=== PATIENT | female | born 1960 | race Caucasian/White ===

== ENCOUNTER 2016-06-15 23:03 | Emergency (ER) | payer MEDICARE, MEDICAID ==
[~2016-06-15] VITALS: Ht 165.1 cm; Wt 119.1 kg
[~2016-06-15 23:03] MED LIST: ABILIFY 10MG TA10 MG PO; AMBIEN 10MG10 MG PO; AMBIEN5 MG PO; ASPIR-LOW81 MG PO; ASPIRIN 81M81 MG/TA2 PO; ATHLETE'S FOOT1% TP; ATIVAN 1MG T1 MG/TAB PO; ATIVAN1 MG PO; BENADRYL; BENADRYL25 M1 PO; BENADRYL25 M2 PO; BENADRYL25 MG PO; BENADRYL50 MG PO; BENTYL 10MG10 MG/CAP PO; BENTYL10 MG/5 ML PO; BUDEPRION XL150 MG PO; CELEXA 20MG20 MG/TAB PO; COLACE 100100 MG/CAP PO; CULTURELLE CAP1 EAC1 PO; FIORICET 325 MG1 TA1 PO; FLEXERIL 1010 MG/TAB PO; FLEXERIL10 MG PO; FLONASE NASAL S16 GM NS; FLONASE0.05 MG/AC NS; KLOR-CON M2020 MEQ PO; LEVAQUIN 5500 MG/TA1 PO; LEVOTHYROXIN0.075 MG PO; LEVOXYL0.05 MG PO; LEXAPRO 10MG10 MG PO; LEXAPRO20 MG PO; LISINOPRIL AND1 TAB PO; LISINOPRIL-HYDR1 TAB PO; LISINOPRIL/HCTZ1 TAB PO; LORAZEPAM1 MG PO; NEURONTIN300 MG PO; NITROSTAT0.4 MG/TAB SL; NORCO 325 MG-51 TAB PO; OMEPRAZOLE20 MG PO; PANTOPRAZOLE40 MG PO; PERCOCET 325 MG1 TA2 PO; PERCOCET 325 MG1 TAB PO; PREDNISONE 2.52.5 MG PO; PREDNISONE 5MG5 MG PO; PREDNISONE1 MG PO; PREDNISONE20 MG PO; PRILOSEC 20MG20 MG PO; PRINZIDE 12.5 M1 TAB PO; PROTONIX 40MG T40 MG PO; SAVELLA25 MG PO; SEROQUEL XR300 MG PO; SPORANOX100 MG PO; STOOL SOFTENER100 M1 PO; STOOL SOFTENER100 M2 PO; SYNTHROID0.075 MG/T PO; SYNTHROID0.088 MG/T PO; TOPROL XL 25MG25 MG PO; TRAZODONE150 MG PO; VALIUM5 MG PO; VITRON C PO; WELLBUTRIN XL150 MG PO; ZOFRAN 4MG T4 MG/TAB PO; ZOFRAN4 M1 PO; ZOLPIDEM10 MG PO
[2016-06-15 23:06] VITALS: BP 117/82; PULSE 105; TEMP 98.1
== END 2016-06-16 00:21 | disposition home or self-care (01) ==
LOC: COL.ER 23:03
DX: S80.12XA Contusion of left lower leg, initial encounter (principal); V48.4XXA Person boarding or alighting a car injured in noncollision transport accident, initial encounter

== ENCOUNTER → 2018-04-04 | Outpatient (CLI) | payer MEDICARE, MEDICAID | LOC: MC.RAD 09:37 | DX: Z12.31 Encounter for screening mammogram for malignant neoplasm of breast (principal) ==

== ENCOUNTER 2018-09-15 14:00 | Emergency (ER) | payer MEDICARE, MEDICAID ==
[~2018-09-15] VITALS: Ht 162.6 cm; Wt 111.4 kg
[2018-09-15 14:08] VITALS: TEMP 97.9
[2018-09-15 15:06] LABS: BASO # 0.1 (0.0-0.2); BASO % 0.7 % (0.0-2.0); EOS # 0.2 (0.0-0.7); EOS % 1.9 % (0-4.0); GRAN # 4.7 (1.4-6.5); HEMATOCRIT 47.8 % (37.0-47.0); HEMOGLOBIN 15.4 g/dl (12.5-16.0); LYMPH # 3.4 (1.2-3.4); LYMPH % 37.3 % (20.0-51.0); MEAN CELL VOLUME 85 fl (80.0-100.0); MEAN CORPUSCULAR HEMOGLOBIN 28 pg (27.0-31.0); MEAN CORPUSCULAR HGB CONC 32 g/dl (33.0-37.0); MONO # 0.7 (0.1-0.6); MONO % 7.5 % (1.7-9.3); PLATELET COUNT 212 K/mm3 (130-400); REDCELL DISTRIBUTION WIDTH-CV 16.1 % (11.5-14.5)
[2018-09-15 15:17] LABS: ALANINE AMINOTRANSFERASE 17 U/L (9-52); ALBUMIN 3.8 gm/dL (3.5-5.0); ALKALINE PHOSPHATASE 75 U/L (50-136); ANION GAP 8 mmol/L (7-16); AST,SGOT 19 U/L (15-37); BILIRUBIN,TOTAL 0.3 mg/dL (0.0-1.0); BLOOD UREA NITROGEN 19 mg/dL (7-17); C-REACTIVE PROTEIN 0.7 mg/dL (0.0-0.9); CALCIUM 8.4 mg/dL (8.4-10.2); CARBON DIOXIDE 29 mmol/L (22-30); CHLORIDE 103 mmol/L (98-107); CREATININE, serum 0.77 (0.52-1.25); GLUCOSE 91 mg/dL (74-106); POTASSIUM 4.1 mmol/L (3.4-5.0); SODIUM 139 mmol/L (137-145); TOTAL PROTEIN 6.7 gm/dL (6.4-8.2)
[2018-09-15 15:26] LABS: TROPONIN-I < 0.012 ng/mL (0.000-0.035)
[2018-09-15] MEDS ORDERED: LEVAQUIN 5500 MG/TA1 PO (16:32)
[2018-09-15 16:52] VITALS: BP 125/65; PULSE 63
== END 2018-09-15 16:58 | disposition home or self-care (01) ==
LOC: COL.ER 14:00
PROVIDERS: Emergency Medicine
DX: J32.9 Chronic sinusitis, unspecified (principal); R42 Dizziness and giddiness; I10 Essential (primary) hypertension
CPT/HCPCS: J2060; J2405; J7030

== ENCOUNTER 2019-01-12 08:49 | Emergency (ER) | payer MEDICARE, MEDICAID ==
[~2019-01-12] VITALS: Ht 152.4 cm; Wt 118.2 kg
[2019-01-12 10:18] LABS: ALBUMIN 3.6 gm/dL (3.5-5.0); BILIRUBIN,TOTAL 0.3 mg/dL (0.0-1.0); C-REACTIVE PROTEIN 0.8 mg/dL (0.0-0.9); CALCIUM 8.6 mg/dL (8.4-10.2); CREATININE, serum 0.59 (0.52-1.25); POTASSIUM 4.1 mmol/L (3.4-5.0); TOTAL PROTEIN 6.3 gm/dL (6.4-8.2)
[2019-01-12] MEDS ORDERED: PEPCID 20MG TAB20 MG PO (10:39)
[2019-01-12] MEDS ORDERED: ASPIRIN 81M81 MG/TA2 PO (10:48)
[2019-01-12] MEDS ORDERED: STOOL SOFTENER100 M2 PO (10:48)
[2019-01-12 11:05] LABS: BASO # 0.1 (0.0-0.2); BASO % 0.8 % (0.0-2.0); EOS # 0.2 (0.0-0.7); EOS % 2.2 % (0-4.0); GRAN # 4.5 (1.4-6.5); GRAN % 57.7 % (42.2-75.2); HEMATOCRIT 39.3 % (37.0-47.0); HEMOGLOBIN 12.7 g/dl (12.5-16.0); LYMPH # 2.2 (1.2-3.4); LYMPH % 27.9 % (20.0-51.0); MEAN CELL VOLUME 88 fl (80.0-100.0); MEAN CORPUSCULAR HEMOGLOBIN 29 pg (27.0-31.0); MEAN CORPUSCULAR HGB CONC 32 g/dl (33.0-37.0); MEAN PLATELET VOLUME 10.7 fl (7.4-10.4); MONO # 0.8 (0.1-0.6); MONO % 10.5 % (1.7-9.3); PLATELET COUNT 221 K/mm3 (130-400); RED BLOOD COUNT 4.45 M/mm3 (4.10-5.30); REDCELL DISTRIBUTION WIDTH-CV 15.1 % (11.5-14.5)
[2019-01-12 11:40] LABS: COLLECTION METHOD CLEAN CATCH
[2019-01-12 11:46] LABS: PH 8 (5-8); SQUAMOUS EPITHELIAL 0-2 /hpf; URINE APPEARANCE Clear; URINE BACTERIA None Seen /hpf; URINE BILIRUBIN Negative (NEGATIVE); URINE BLOOD Negative (NEGATIVE); URINE COLOR Straw; URINE GLUCOSE Negative (NEGATIVE); URINE KETONE Negative (NEGATIVE); URINE LEUKOCYTE ESTERASE Negative (NEGATIVE); URINE NITRATE Negative (NEGATIVE); URINE PROTEIN(semi-quant) Negative (NEGATIVE); URINE RBC 0-2 /hpf; URINE UROBILINOGEN Negative (NEGATIVE)
[2019-01-12 14:50] VITALS: BP 132/68; PULSE 68; TEMP 98.5
== END 2019-01-12 14:50 | disposition home or self-care (01) ==
LOC: COL.ER 08:49
PROVIDERS: Family Medicine
DX: E86.0 Dehydration (principal); M54.9 Dorsalgia, unspecified; K21.9 Gastro-esophageal reflux disease without esophagitis; B34.9 Viral infection, unspecified; I10 Essential (primary) hypertension; E03.9 Hypothyroidism, unspecified; Z79.51 Long term (current) use of inhaled steroids; Z79.82 Long term (current) use of aspirin
CPT/HCPCS: J2405; J7030

== ENCOUNTER 2019-07-07 13:44 | Emergency (ER) | payer MEDICARE, MEDICAID ==
[~2019-07-07] VITALS: Ht 162.6 cm; Wt 134.1 kg
[~2019-07-07 13:44] MED LIST changes: +PEPCID 20MG TAB20 MG PO
[2019-07-07 13:49] VITALS: TEMP 98.5
[2019-07-07] MEDS ORDERED: PREDNISONE20 MG PO (14:18)
[2019-07-07] MEDS ORDERED: DOXYCYCLINE 10100 MG PO (14:18)
[2019-07-07 14:30] LABS: BASO % 0.5 % (0.0-2.0); EOS # 0.1 (0.0-0.7); EOS % 1.6 % (0-4.0); GRAN # 2.3 (1.4-6.5); GRAN % 41.1 % (42.2-75.2); HEMATOCRIT 43.4 % (37.0-47.0); HEMOGLOBIN 13.9 g/dl (12.5-16.0); LYMPH # 2.8 (1.2-3.4); LYMPH % 50.2 % (20.0-51.0); MEAN CELL VOLUME 88 fl (80.0-100.0); MEAN CORPUSCULAR HEMOGLOBIN 28 pg (27.0-31.0); MEAN CORPUSCULAR HGB CONC 32 g/dl (33.0-37.0); MEAN PLATELET VOLUME 10.6 fl (7.4-10.4); MONO # 0.4 (0.1-0.6); MONO % 6.2 % (1.7-9.3); PLATELET COUNT 124 K/mm3 (130-400); RED BLOOD COUNT 4.93 M/mm3 (4.10-5.30)
[2019-07-07 14:32] LABS: ALBUMIN 3.7 gm/dL (3.5-5.0); BILIRUBIN,TOTAL 0.5 mg/dL (0.0-1.0); CREATININE, serum 0.67 (0.52-1.25); POTASSIUM 4.7 mmol/L (3.4-5.0); TOTAL PROTEIN 6.5 gm/dL (6.4-8.2)
[2019-07-07 17:07] VITALS: BP 128/82; PULSE 95
[2019-07-08] MEDS ORDERED: TAMIFLU 75MG75 MG PO (22:45)
== END 2019-07-07 17:09 | disposition home or self-care (01) ==
LOC: COL.ER 13:44
PROVIDERS: Emergency Medicine
DX: J20.9 Acute bronchitis, unspecified (principal); J18.9 Pneumonia, unspecified organism; Z79.82 Long term (current) use of aspirin; Z79.51 Long term (current) use of inhaled steroids
CPT/HCPCS: J1720; J7030

== ENCOUNTER 2019-07-08 19:32 | Emergency (ER) | payer MEDICARE, MEDICAID ==
[~2019-07-08] VITALS: Ht 165.1 cm; Wt 134.1 kg
[~2019-07-08 19:32] MED LIST changes: +DOXYCYCLINE 10100 MG PO
[2019-07-08] MEDS ORDERED: TAMIFLU 75MG75 MG PO (22:45)
[2019-07-08 23:04] VITALS: BP 135/90; PULSE 84; TEMP 98.3
== END 2019-07-08 23:08 | disposition home or self-care (01) ==
LOC: COL.ER 19:32
DX: J10.1 Influenza due to other identified influenza virus with other respiratory manifestations (principal); J20.9 Acute bronchitis, unspecified; M79.7 Fibromyalgia; Z79.82 Long term (current) use of aspirin

== ENCOUNTER 2019-12-06 20:31 | Emergency (ER) | payer MEDICARE, MEDICAID ==
[~2019-12-06] VITALS: Ht 162.6 cm; Wt 136.4 kg
[~2019-12-06 20:31] MED LIST changes: +TAMIFLU 75MG75 MG PO
[2019-12-06 21:41] VITALS: BP 143/80; PULSE 74; TEMP 98.9
== END 2019-12-06 21:43 | disposition home or self-care (01) ==
LOC: COL.ER 20:31
DX: H60.91 Unspecified otitis externa, right ear (principal); I10 Essential (primary) hypertension; F32.9 Major depressive disorder, single episode, unspecified; Z79.52 Long term (current) use of systemic steroids; Z79.51 Long term (current) use of inhaled steroids; Z79.82 Long term (current) use of aspirin

== ENCOUNTER 2020-01-01 09:09 | Day surgery (SDC) | payer MEDICARE, MEDICAID ==
[~2020-01-01] VITALS: Ht 162.7 cm; Wt 134.2 kg
[2020-01-01] VITALS (11 sets, daily range): BP systolic 102–135; BP diastolic 69–98; PULSE 73–701; TEMP 98.9
[~2020-01-01 09:09] MED LIST changes: +BONINE25 MG PO
[2020-01-01] MEDS ORDERED: PREDNISONE 5MG5 MG PO (09:37)
[2020-01-01] MEDS ORDERED: MAGNESIUM250 M1 PO (09:40)
[2020-01-01] MEDS ORDERED: CENTRUM SILVER1 TAB PO (09:42)
[2020-01-01] MEDS ORDERED: NITRO-DUR0.2 MG/PAT TD (09:43)
[2020-01-01] MEDS ORDERED: NITROSTAT0.4 MG/TAB SL (09:43)
[2020-01-01 10:39] LABS: HEMOGLOBIN 13.4 g/dl (12.5-16.0); MEAN CELL VOLUME 88 fl (80.0-100.0); MEAN CORPUSCULAR HEMOGLOBIN 29 pg (27.0-31.0); MEAN CORPUSCULAR HGB CONC 33 g/dl (33.0-37.0); MEAN PLATELET VOLUME 10.1 fl (7.4-10.4); PLATELET COUNT 213 K/mm3 (130-400); RED BLOOD COUNT 4.68 M/mm3 (4.10-5.30); REDCELL DISTRIBUTION WIDTH-CV 15.5 % (11.5-14.5)
[2020-01-01 10:43] LABS: CALCIUM 8.4 mg/dL (8.4-10.2); CREATININE, serum 0.7 (0.52-1.25); POTASSIUM 3.7 mmol/L (3.4-5.0)
[2020-01-01 10:46] LABS: PROTHROMBIN TIME 11.7 SECONDS (9.7-12.8)
[2020-01-01 10:48] LABS: PARTIAL THROMBOPLASTIN TIME 32.1 SECONDS (26.0-37.0)
--- NOTE | 2020-01-01 11:36 | NUR ---
SEE MERGE DOCUMENTATION FOR MEDICATION ADMINISTRATION TIMES AND INTRA/POST PROCEDURE SEDATION ASSESSMENTS.
--- NOTE | 2020-01-01 13:00 | NUR ---
to eu 10 via bed, pt has radial band on right wrist with 12cc air, site within normal limits, no signs of bleeding. groin site has 2x2 with tegraderm that is clean and dry, area soft. call light in place, takes water. no c/o, reviewed bedrest and activity with pt.
--- NOTE | 2020-01-01 13:30 | NUR ---
pt remains the same, site to groin clean and dry, site to radial clean and dry, takes juice, meal ordered
--- NOTE | 2020-01-01 14:15 | NUR ---
at site check, 2x2 dressing saturated with blood, manual pressure applied, area is soft and ooze is at venous site, liaison inspection laboratory assistant called, ordere for safegard applied to site after 10 min of pressure, cont with small ooze, 40cc air applied area remains soft and oozing has stopped with con't to monitor
--- NOTE | 2020-01-01 14:45 | NUR ---
safeguard site remains the same, pt has no c/o. rests in bed, radial site is clean and dry with no oozing. at 1500 released 2cc from radial site
--- NOTE | 2020-01-01 15:45 | NUR ---
radial band released after 4cc, site with bandaid on with wrap, has slight bruising to wrist, no swelling.
--- NOTE | 2020-01-01 17:00 | NUR ---
head of bed raised to 45 degress, safeguard removed, no active bleeding, no swelling or oozing noted from site, new gauze and tegrederm placed, does have redness from "earlier" rash, mild bruise. pt walked in [place] and up to b/r and no changes from groin site. iv d'cd intact. reviewed discharge inst. with pt on care of radial and groin sites, next appt, and to d'c nitro patch with verbal understanding. pt is up in room dressed at 1800 waits for ride
--- NOTE | 2020-01-01 18:42 | NUR ---
patient waited for ride in chair, then discharged via w/c to car
== END 2020-01-01 18:43 | disposition home or self-care (01) ==
LOC: COL.CAR 09:09
PROVIDERS: Internal Medicine Cardiovascular Disease
DX: I48.0 Paroxysmal atrial fibrillation (principal); R06.00 Dyspnea, unspecified; I11.9 Hypertensive heart disease without heart failure; I25.10 Atherosclerotic heart disease of native coronary artery without angina pectoris; K21.9 Gastro-esophageal reflux disease without esophagitis; E03.9 Hypothyroidism, unspecified; G89.29 Other chronic pain; M79.7 Fibromyalgia; F41.9 Anxiety disorder, unspecified; F31.9 Bipolar disorder, unspecified; G47.30 Sleep apnea, unspecified; J98.4 Other disorders of lung; M19.90 Unspecified osteoarthritis, unspecified site; Z88.5 Allergy status to narcotic agent; Z82.49 Family history of ischemic heart disease and other diseases of the circulatory system; Z87.891 Personal history of nicotine dependence; Z88.0 Allergy status to penicillin; Z88.2 Allergy status to sulfonamides; Z88.7 Allergy status to serum and vaccine; Z88.1 Allergy status to other antibiotic agents; Z91.041 Radiographic dye allergy status; Z91.040 Latex allergy status; Z79.899 Other long term (current) drug therapy; Z79.82 Long term (current) use of aspirin; Z98.51 Tubal ligation status
CPT/HCPCS: C1760; C1769; C1887; C1894; J1200; J1644; J2250; J2930; J3010; Q9967

== ENCOUNTER 2020-03-14 16:23 | Emergency (ER) | payer MEDICARE, MEDICAID ==
[~2020-03-14] VITALS: Ht 162.6 cm; Wt 141.8 kg
[~2020-03-14 16:23] MED LIST changes: +CENTRUM SILVER1 TAB PO; +MAGNESIUM250 M1 PO; +NITRO-DUR0.2 MG/PAT TD
[2020-03-14] MEDS ORDERED: DECADRON0.5 MG PO (18:09)
[2020-03-14] MEDS ORDERED: FAMVIR 500500 MG/TAB PO (18:14)
[2020-03-14] MEDS ORDERED: REQUIP 0.5MG0.5 MG PO (18:15)
[2020-03-14 19:30] VITALS: BP 122/79; PULSE 81
== END 2020-03-14 19:30 | disposition home or self-care (01) ==
LOC: COL.ER 16:23
DX: S82.64XA Nondisplaced fracture of lateral malleolus of right fibula, initial encounter for closed fracture (principal); I10 Essential (primary) hypertension; E07.9 Disorder of thyroid, unspecified; M79.7 Fibromyalgia; Z79.82 Long term (current) use of aspirin; Z79.51 Long term (current) use of inhaled steroids; Z98.890 Other specified postprocedural states; Z79.890 Hormone replacement therapy; W01.0XXA Fall on same level from slipping, tripping and stumbling without subsequent striking against object, initial encounter; Y92.009 Unspecified place in unspecified non-institutional (private) residence as the place of occurrence of the external cause
CPT/HCPCS: Q4045

== ENCOUNTER → 2020-04-16 | Outpatient (CLI) | payer MEDICARE, MEDICAID ==
[~2020-04-16] MED LIST changes: +DECADRON0.5 MG PO; +FAMVIR 500500 MG/TAB PO; +REQUIP 0.5MG0.5 MG PO
== END ==
LOC: COL.PUL 04-06 10:00
DX: R06.02 Shortness of breath (principal); F17.210 Nicotine dependence, cigarettes, uncomplicated
CPT/HCPCS: J7674

== ENCOUNTER 2020-09-30 20:34 | Emergency (ER) | payer MEDICARE, MEDICAID ==
[~2020-09-30] VITALS: Ht 162.6 cm; Wt 156.4 kg
[~2020-09-30 20:34] MED LIST changes: +RT ADVAIR HFA 1112 G IH
[2020-09-30 22:30] VITALS: BP 140/97; PULSE 88; TEMP 98
== END 2020-09-30 22:30 | disposition home or self-care (01) ==
LOC: COL.ER 20:34
DX: S93.402A Sprain of unspecified ligament of left ankle, initial encounter (principal); S43.401A Unspecified sprain of right shoulder joint, initial encounter; I10 Essential (primary) hypertension; E11.9 Type 2 diabetes mellitus without complications; F32.9 Major depressive disorder, single episode, unspecified; J43.9 Emphysema, unspecified; Z88.1 Allergy status to other antibiotic agents; Z88.6 Allergy status to analgesic agent; Z88.0 Allergy status to penicillin; Z88.2 Allergy status to sulfonamides; Z88.8 Allergy status to other drugs, medicaments and biological substances; Z87.891 Personal history of nicotine dependence; Z79.82 Long term (current) use of aspirin; W18.09XA Striking against other object with subsequent fall, initial encounter

== ENCOUNTER 2020-10-09 08:50 | Emergency (ER) | payer MEDICARE, MEDICAID ==
[~2020-10-09] VITALS: Ht 162.6 cm; Wt 156.4 kg
[2020-10-09 08:54] VITALS: TEMP 98.6
[2020-10-09 09:36] LABS: BASO % 0.6 % (0.0-2.0); EOS # 0.2 (0.0-0.7); EOS % 3.2 % (0-4.0); GRAN # 2.9 (1.4-6.5); GRAN % 45.8 % (42.2-75.2); HEMOGLOBIN 12.9 g/dl (12.5-16.0); LYMPH # 2.6 (1.2-3.4); LYMPH % 41.8 % (20.0-51.0); MEAN CELL VOLUME 88 fl (80.0-100.0); MEAN CORPUSCULAR HEMOGLOBIN 28 pg (27.0-31.0); MEAN CORPUSCULAR HGB CONC 32 g/dl (33.0-37.0); MEAN PLATELET VOLUME 9.7 fl (7.4-10.4); MONO # 0.5 (0.1-0.6); MONO % 8.3 % (1.7-9.3); PLATELET COUNT 208 K/mm3 (130-400); RED BLOOD COUNT 4.64 M/mm3 (4.10-5.30); REDCELL DISTRIBUTION WIDTH-CV 16.1 % (11.5-14.5)
[2020-10-09 09:49] LABS: ALBUMIN 3.3 gm/dL (3.5-5.0); BILIRUBIN,TOTAL 0.3 mg/dL (0.0-1.0); CALCIUM 7.9 mg/dL (8.4-10.2); CREATININE, serum 0.76 (0.52-1.25); POTASSIUM 4.1 mmol/L (3.4-5.0); TOTAL PROTEIN 6.3 gm/dL (6.4-8.2)
[2020-10-09 10:15] LABS: COLLECTION METHOD CLEAN CATCH
[2020-10-09 10:19] LABS: THYROID STIMULATING HORMONE 7.4 uIU/mL (0.465-4.680)
[2020-10-09 10:21] LABS: MUCOUS Present /lpf; PH 6 (5-8); URINE APPEARANCE Hazy; URINE BACTERIA None Seen /hpf; URINE BILIRUBIN Negative (NEGATIVE); URINE BLOOD Negative (NEGATIVE); URINE COLOR Yellow; URINE GLUCOSE Negative (NEGATIVE); URINE KETONE Negative (NEGATIVE); URINE LEUKOCYTE ESTERASE Negative (NEGATIVE); URINE NITRATE Negative (NEGATIVE); URINE PROTEIN(semi-quant) Negative (NEGATIVE); URINE RBC 0-2 /hpf; URINE UROBILINOGEN Negative (NEGATIVE)
[2020-10-09 10:50] VITALS: BP 99/51; PULSE 64
== END 2020-10-09 10:50 | disposition home or self-care (01) ==
LOC: COL.ER 08:50
PROVIDERS: Family Medicine
DX: M25.511 Pain in right shoulder (principal); E03.9 Hypothyroidism, unspecified; I10 Essential (primary) hypertension; F41.9 Anxiety disorder, unspecified; M79.7 Fibromyalgia; Z88.1 Allergy status to other antibiotic agents; Z88.5 Allergy status to narcotic agent; Z88.0 Allergy status to penicillin; Z88.2 Allergy status to sulfonamides; Z88.7 Allergy status to serum and vaccine; Z88.6 Allergy status to analgesic agent; Z88.8 Allergy status to other drugs, medicaments and biological substances; Z91.040 Latex allergy status; Z91.041 Radiographic dye allergy status; Z87.891 Personal history of nicotine dependence; Z79.890 Hormone replacement therapy; Z79.51 Long term (current) use of inhaled steroids; Z79.899 Other long term (current) drug therapy; Z79.82 Long term (current) use of aspirin
CPT/HCPCS: J1200; J3010; J7120

== ENCOUNTER 2021-02-14 13:56 | Emergency (ER) | payer MEDICARE, MEDICAID ==
[~2021-02-14] VITALS: Ht 162.6 cm; Wt 195.5 kg
[2021-02-14 14:14] VITALS: TEMP 101.3
[2021-02-14 16:13] VITALS: BP 101/42; PULSE 82
[2021-02-14] MEDS ORDERED: DECADRON PO (18:29)
== END 2021-02-14 16:13 | disposition home or self-care (01) ==
LOC: COL.ER 13:56
DX: U07.1 COVID-19 (principal); J44.9 Chronic obstructive pulmonary disease, unspecified; I10 Essential (primary) hypertension; E03.9 Hypothyroidism, unspecified; Z88.1 Allergy status to other antibiotic agents; Z88.0 Allergy status to penicillin; Z79.890 Hormone replacement therapy; Z79.899 Other long term (current) drug therapy
CPT/HCPCS: Q0244

== ENCOUNTER → 2021-04-27 | Outpatient (CLI) | payer MEDICARE, MEDICAID ==
[~2021-04-27] MED LIST changes: +DECADRON PO
== END ==
LOC: MC.RAD 13:42
DX: N63.10 Unspecified lump in the right breast, unspecified quadrant (principal)

== ENCOUNTER 2021-06-03 17:07 | Emergency (ER) | payer MEDICARE, MEDICAID ==
[~2021-06-03] VITALS: Ht 154.9 cm; Wt 150.0 kg
[~2021-06-03 17:07] MED LIST changes: -REQUIP 0.5MG0.5 MG PO; +REQUIP 1MG T1 MG/TAB PO
[2021-06-03 18:25] LABS: BASO # 0.1 K/mm3 (0.0-0.2); BASO % 0.6 % (0.0-2.0); EOS # 0.2 K/mm3 (0.0-0.7); EOS % 2.2 % (0.0-4.0); GRAN # 3.7 K/mm3 (1.4-6.5); GRAN % 42.7 % (42.2-75.2); HEMATOCRIT 44.3 % (37.0-47.0); HEMOGLOBIN 14.6 g/dl (12.5-16.0); LYMPH # 3.9 K/mm3 (1.2-3.4); LYMPH % 45.3 % (20.0-51.0); MEAN CELL VOLUME 89 fl (80.0-100.0); MEAN CORPUSCULAR HEMOGLOBIN 29 pg (27-31); MEAN CORPUSCULAR HGB CONC 33 g/dl (33.0-37.0); MEAN PLATELET VOLUME 10.8 fl (7.4-10.4); MONO # 0.8 K/mm3 (0.1-0.6); MONO % 8.9 % (1.7-9.3); PLATELET COUNT 207 K/mm3 (130-400); RED BLOOD COUNT 4.99 M/mm3 (4.10-5.30); REDCELL DISTRIBUTION WIDTH-CV 14.7 % (11.5-14.5)
[2021-06-03 18:30] LABS: COLLECTION METHOD CLEAN CATCH
[2021-06-03 18:38] LABS: MUCOUS Present (NOT PRESENT); PH 6 (5-8); SQUAMOUS EPITHELIAL 0-2 /hpf (0-10); URINE APPEARANCE Clear (CLEAR/HAZY); URINE BACTERIA Rare /hpf (NONE SEEN); URINE BILIRUBIN Negative (NEGATIVE); URINE BLOOD Negative (NEGATIVE); URINE COLOR Yellow (YELLOW); URINE GLUCOSE Negative (NEGATIVE); URINE KETONE Negative (NEGATIVE); URINE LEUKOCYTE ESTERASE 1+ (NEGATIVE); URINE NITRATE Negative (NEGATIVE); URINE PROTEIN(semi-quant) Negative (NEGATIVE); URINE RBC 0-2 /hpf (0-2); URINE UROBILINOGEN Negative (NEGATIVE)
[2021-06-03 18:41] LABS: ACETAMINOPHEN < 1.0 ug/mL (10-30); ALANINE AMINOTRANSFERASE 40 U/L (0-55); ALBUMIN 3.3 gm/dL (3.5-5.0); ALCOHOL(ethanol),MEDICAL < 10 mg/dL (0-10); ALKALINE PHOSPHATASE 81 U/L (40-150); ANION GAP 13 mmol/L (7-16); AST,SGOT 52 U/L (5-34); BILIRUBIN,TOTAL 0.5 mg/dL (0.2-1.2); BLOOD UREA NITROGEN 14 mg/dL (10-20); CALCIUM 8.9 mg/dL (8.4-10.2); CARBON DIOXIDE 23 mmol/L (22-29); CHLORIDE 105 mmol/L (98-107); CREATININE, serum 1.13 mg/dL (0.57-1.11); GLUCOSE 118 mg/dL (70-99); POTASSIUM 4.3 mmol/L (3.5-4.5); SALICYLATE < 5.0 mg/dL (15.0-30.0); SODIUM 141 mmol/L (136-145); TOTAL PROTEIN 6.7 gm/dL (6.2-8.1)
[2021-06-03 18:45] LABS: TRICYCLIC ANTIDEPRESS URINE POSITIVE
[2021-06-04] MEDS ORDERED: CELEXA10 MG PO (08:54)
[2021-06-04] MEDS ORDERED: RT ADVAIR 228 DISKUS IH (08:59)
[2021-06-04] MEDS ORDERED: DECADRON0.5 MG PO (09:00)
[2021-06-04] MEDS ORDERED: INCRUSE EL62.5 MCG/A IH (09:02)
[2021-06-04] MEDS ORDERED: PROVENTIL0.09 MG/A1 IH (09:03)
[2021-06-04 10:52] VITALS: TEMP 97.1
[2021-06-04 16:20] VITALS: BP 155/86; PULSE 99
== END 2021-06-04 16:25 ==
LOC: COL.ER 17:07
PROVIDERS: Student in an Organized Health Care Education/Training Program
DX: F31.9 Bipolar disorder, unspecified (principal); R45.851 Suicidal ideations; E66.01 Morbid (severe) obesity due to excess calories; Z20.822 Contact with and (suspected) exposure to COVID-19; Z88.8 Allergy status to other drugs, medicaments and biological substances; Z79.899 Other long term (current) drug therapy

== ENCOUNTER 2022-03-30 09:00 | Day surgery (SDC) | payer MEDICARE, MEDICAID ==
[~2022-03-30] VITALS: Ht 165.1 cm; Wt 120.0 kg
[2022-03-30] VITALS (9 sets, daily range): BP systolic 107–143; BP diastolic 57–92; PULSE 80–96; TEMP 98.5–99.8
[~2022-03-30 09:00] MED LIST changes: +ATARAX 25MG25 MG/TAB PO; +CELEXA10 MG PO; +CYMBALTA 60MG60 MG PO; +EUTHYROX100 MCG PO; +FERROUSAL325 MG PO; +INCRUSE EL62.5 MCG/A IH; +MACROBID 1100 MG/CAP PO; +NEURONTIN100 MG/CAP PO; +OZEMPIC1 MG/0.71 SQ; +PROVENTIL0.09 MG/A1 IH; +REQUIP3 MG PO; +RT ADVAIR 228 DISKUS IH; +SEROQUEL300 MG PO
--- NOTE | 2022-03-30 09:00 | NUR ---
PT IS A DIRECT ADMIT FROM HOME ADMITTED TO 311 TO FOR A CYSTOSCOPY. PT IS AXOX4. VSS. PT ORIENTED TO ROOM AND FLOOR. IV STARTED AND IVF STARTED. ADMISSION COMPLETED WITH PT. 1015-PT HAS AN ALLERGY TO [facility] AND CURRENTLY HAS IT ORDERED. SPOKE WITH PHARMACY AND THEY HAVE IT DOCUMENTED THAT PT PREVIOUSLY RECEIVED MERREM WITHOUT ISSUE. 1025-JOURDAN FONTENOT CALLED NO ANSWER, MESSAGE LEFT.
--- NOTE | 2022-03-30 11:00 | NUR ---
1045- office called for antibiotic clarification, but no answer. 1115-Spoke with Rn at the office for antibiotic clarification and pain meds. Awaiting orders.
--- NOTE | 2022-03-30 13:40 | NUR ---
Message left for regarding steroids prior to OR d/t Pt's addisons disease.
--- NOTE | 2022-03-30 13:52 | NUR ---
1345-' RN CALLED BACK AND STATED TO CALL ANESTHESIA REGARDING STEROIDS. 1350-SPOKE WITH AWILDA PAYROLL ACCOUNTING MANAGER REGARDING IV STEROIDS PRIOR TO OR D/T ADDISONS DISEASE. ORDER RECEIVED.
--- NOTE | 2022-03-30 15:45 | NUR ---
KAVITHA RN IN OR CALLED REGARDING SCHEDULE TIME. REPORT GIVEN. OK TO GIVE PRE-OP PEPCID NOW. PT UPDATED.
--- NOTE | 2022-03-30 16:08 | NUR ---
PT TAKEN DOWN TO OR BY KAVITHA LOPEZ.
--- NOTE | 2022-03-30 18:45 | NUR ---
PT RETURNED FROM PACU. PT IS AXOX4. PT AMBULATED TO RESTROOM AND VOIDED LARGE AMOUNT. VSS. PT SIPPING SPRITE, DENIES PAIN, AND AWAITING DINNER. PT INSTRUCTED TO CALL [facility] FOR RE[facility]AB[facility] ALL NEEDS.
--- NOTE | 2022-03-30 20:15 | NUR ---
pt has been up and voided x2, taking po w/o nausea or vomiting, IV dc'd, discharge instructions given to pt and daughter, tylenol 1000mg given po. VSS ready for discharge.
--- NOTE | 2022-03-30 20:25 | NUR ---
pt escorted out per this RN per WC accompanied by daughter, all belongings with pt.
[2022-04-03] MEDS ORDERED: NAPROSYN500 MG PO (12:17)
== END 2022-03-30 20:25 | disposition home or self-care (01) ==
LOC: SDCO 09:00 → MEDICAL 09:02 → SDCO 16:00
DX: N20.1 Calculus of ureter (principal); A41.9 Sepsis, unspecified organism
CPT/HCPCS: OP; C1769; J0690; J1100; J1940; J2405; J2704; J2930; J3010; J7030

== ENCOUNTER 2023-12-29 14:09 | Emergency (ER) | payer MEDICARE, OTHER ==
[~2023-12-29] VITALS: Ht 162.6 cm; Wt 107.3 kg
[2023-12-29 14:09] VITALS: TEMP 99
[~2023-12-29 14:09] MED LIST changes: -ATARAX 25MG25 MG/TAB PO; +ATARAX50 MG PO; +ATROVENT I0.2 MG/1 M IH; +BACTROBAN 22GM22 GM NAS; +DESITIN MAXIMUM S40% TOP; +DILAUDID 2MG TAB2 MG PO; -EUTHYROX100 MCG PO; +MELATONIN5 M1 PO; +NAPROSYN500 MG PO; +NARCAN4 MG NS; +NIACIN 64 MG-501 TA1 PO; +PROAIR HFA0.09 MG/AC IH; -PROVENTIL0.09 MG/A1 IH; +PULMICORT0.5 MG/2 M IH; +ROLAIDS ULTRA PO; +SEROQUEL 1100 MG/TAB PO; -SEROQUEL300 MG PO; +SYNTHROID0.1 MG/TAB PO; +TYLENOL 500MG500 MG PO; +VOLTAREN GEL 1%1 TU TP; +ZOFRAN ODT4 MG PO
[2023-12-29 14:41] LABS: BASO # 0.1 K/mm3 (0.0-0.2); BASO % 0.6 % (0.0-2.0); EOS # 0.2 K/mm3 (0.0-0.7); GRAN # 5.5 K/mm3 (1.4-6.5); GRAN % 64.7 % (42.2-75.2); HEMOGLOBIN 11.7 g/dl (12.5-16.0); LYMPH # 2.1 K/mm3 (1.2-3.4); MEAN CELL VOLUME 82 fl (80.0-100.0); MEAN CORPUSCULAR HEMOGLOBIN 25 pg (27-31); MEAN CORPUSCULAR HGB CONC 31 g/dl (33.0-37.0); MONO # 0.6 K/mm3 (0.1-0.6); MONO % 6.9 % (1.7-9.3); PLATELET COUNT 223 K/mm3 (130-400); RED BLOOD COUNT 4.61 M/mm3 (4.10-5.30); REDCELL DISTRIBUTION WIDTH-CV 15.9 % (11.5-14.5)
[2023-12-29 14:58] LABS: ALANINE AMINOTRANSFERASE 24 U/L (0-55); ALBUMIN 3.4 g/dL (3.4-4.8); ALKALINE PHOSPHATASE 83 U/L (40-150); ANION GAP 12 mmol/L (7-16); AST,SGOT 29 U/L (5-34); BILIRUBIN,TOTAL 0.3 mg/dL (0.2-1.2); BLOOD UREA NITROGEN 27 mg/dL (10-20); CALCIUM 9.1 mg/dL (8.4-10.2); CHLORIDE 105 mEq/L (98-107); GLUCOSE 103 mg/dL (70-99); POTASSIUM 4.2 mEq/L (3.5-4.5); SODIUM 140 mEq/L (136-145); TOTAL PROTEIN 6.5 g/dl (6.2-8.1)
[2023-12-29] MEDS ORDERED: NS 1,000 ML IV ONE (15:00)
[2023-12-29 15:07] LABS: TROPONIN-I < 0.010 ng/mL (0.00-0.033)
[2023-12-29 15:13] LABS: COLLECTION METHOD CATHETER
[2023-12-29 15:18] LABS: URINE APPEARANCE CLEAR (CLEAR/HAZY); URINE BLOOD NEGATIVE (NEGATIVE); URINE COLOR YELLOW (YELLOW); URINE GLUCOSE NEGATIVE (NEGATIVE); URINE KETONE NEGATIVE (NEGATIVE); URINE NITRATE NEGATIVE (NEGATIVE); URINE PROTEIN(semi-quant) NEGATIVE (NEGATIVE); URINE UROBILINOGEN 0.2 E.U/dL (0.2-1.0)
[2023-12-29 16:40] VITALS: BP 131/64; PULSE 74
== END 2023-12-29 16:40 | disposition home or self-care (01) ==
LOC: COL.ER 14:09
PROVIDERS: Physician Assistant
DX: R53.1 Weakness (principal); R42 Dizziness and giddiness
CPT/HCPCS: J1720; J7030